=== PATIENT | female | born 1990 | race Caucasian/White ===

== ENCOUNTER 2017-12-03 11:42 | Outpatient (CLI) | payer BC, MEDICAID, SELFPAY ==
[2017-12-03 12:21] VITALS: BP 122/76; RESP 18; TEMP 37
== END 2017-12-03 13:15 | disposition home or self-care (01) ==
LOC: OBOUT 11:52 → OB 11:57
PROVIDERS: PCP Physician Assistant; Visit Provider Nurse Practitioner Obstetrics & Gynecology
DX: O26.93 Pregnancy related conditions, unspecified, third trimester (principal); Z3A.33 33 weeks gestation of pregnancy; Z36.9 Encounter for antenatal screening, unspecified
CPT/HCPCS: 59025

== ENCOUNTER → 2017-12-17 17:06 | Outpatient (CLI) | payer BC, MEDICAID, SELFPAY | PROVIDERS: PCP Nurse Practitioner Obstetrics & Gynecology; Visit Provider Nurse Practitioner Obstetrics & Gynecology | DX: Z34.90 Encounter for supervision of normal pregnancy, unspecified, unspecified trimester (principal) | CPT/HCPCS: 86403 ==

== ENCOUNTER 2018-01-13 10:51 | Inpatient (IN) | payer BC, MEDICAID, SELFPAY ==
[2018-01-13 10:36] VITALS: BMI 38.7
[2018-01-13 10:37] VITALS: BP 123/82; PULSE 118; RESP 20; TEMP 36.3; O2SAT 97; BMI 38.7
--- NOTE | 2018-01-13 11:19 | P.PCN_ITS ---
- Delivery Note Delivery Date:: 01/13/18 Delivery Time:: 11:00 Anesthesia Type: None Was labor medically induced?: No Induction method: none Gestational age (weeks): 39 delivered prior to 39 weeks?: No Justification for early elective delivery:: Active Labor Infant Gender: Female at 1 minute: 8 at 5 minutes: 9 Delivery Procedure:: She is a 27-year-old 3 para 2 who was 39 weeks gestational age. She arrived in active labor having regular contractions and was found to be 9 cm dilated. She had her membranes ruptured and with one long push she delivered a liveborn female child at 11:00 on the morning of January 13, 2018. The baby had Apgars of 8 at 1 minute and 9 at 5 minutes. On deliver the head the anterior shoulder rapidly delivered followed by the rest of the infant's body atraumatically. The oropharynx and nasopharynx were bulb suctioned. The baby cried spontaneously. Since the baby was vigorous we allowed the cord to continue to [place] approximately 1 minute. The cord was then doubly clamped and cut and the was handed off to nurses who assigned Apgars of 8 at 1 minute and 9 at 5 minutes. We then obtained cord blood as well as cord pH. The pH was 7.40. Using gentle traction on the cord and and countertraction on the fundus I was able to easily deliver the placenta intact. He had a normal three-vessel cord. There were any other vaginal lacerations. Estimated blood loss approximately 400 cc. She plans to bottle feed. Her principal java software engineer is Dr. Mcclure.
[2018-01-13 11:38] LABS: Basophils % 0.1 % (0.1-2.0); Eosinophils # 0.1 K/mm3 (0.0-0.4); Eosinophils % 0.7 % (0.1-12.0); Hematocrit 40.7 % (37.0-47.0); Hemoglobin 13.8 g/dL (12.2-16.2); Lymphocytes # 1.6 K/mm3 (0.7-4.5); Lymphocytes % 14.1 K/mm3 (10-50); Mean Corpuscular HGB Conc 33.8 g/dL (31.8-35.4); Mean Corpuscular Hemoglobin 30.6 pg (27.0-31.2); Mean Corpuscular Volume 90.4 fl (81-99); Mean Platelet Volume 9.2 fl (7.4-10.4); Monocytes # 0.5 K/mm3 (0.1-1.0); Monocytes % 4.1 % (1.7-9.3); Neutrophils # 8.9 K/mm3 (1.8-7.8); Platelet Count 220 K/mm3 (142-424); Red Blood Count 4.51 M/mm3 (4.20-5.40); Red Cell Distribution Width 12.9 % (11.5-17.5)
--- NOTE | 2018-01-13 13:59 | HMH.OBAPHP ---
OB - H&P: HPI Antepartum - History of Present Illness Chief complaint: Contractions - History of Present Criteria for establishing EDC:: LMP confirmed by 1st trimester US care: good care Ultrasounds: normal 1st trimester US, normal mid trimester US Obstetrical complications: none Medical complications: none Planning to breastfeed?: No [facility] History Medical History: Reports:: Kidney Stones Other Medical History: Reports: Arthritis, Glaucoma Other Surgeries: Yes: Other Amputation: No Fractures: No - *Social History Smoking Status: Former smoker Alcohol Intake: never Substance Use Type: denies use Occupational Status: employed Household Members: spouse, children *Family Hx:: Diabetes, Asthma, Hyperlipidemia, Hypertension, Thyroid Disorder, Heart Attack [employer]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 History, Abnormal Uterine Bleeding, Endometriosis Para: 2 Meds Home Medications Medication Instructions Recorded Confirmed Type azelaic acid 15 % topical foam % TOPICAL 11/29/17 History benzoyl peroxide 10 % lotion 1 applic TOPICAL QDAY 11/29/17 History ferrous sulfate 325 mg (65 mg 325 mg PO QDAY tab 11/29/17 History iron) tablet,delayed release latanoprost 0.005 % eye drops 1 drp OPHTHALMIC QDAY 11/29/17 History 1 tab PO QDAY 11/29/17 History vitamin,calcium,xwptknht-quzp-iheda acid tablet Allergies Allergy/AdvReac Type Severity Reaction Status Date / Time No Known Allergies Allergy Verified 11/29/17 10:25 OB - H&P: Exam - Physical Exam Vital signs: Temp Pulse Resp BP Pulse Ox 97.4 F L 118 H 20 123/82 97 01/13/18 10:37 01/13/18 10:37 01/13/18 10:37 01/13/18 10:37 01/13/18 10:37 - Constitutional mild distress (She is in active labor) OB - Results - Labs Labs: Short CBC 01/13/18 Range/Units 11:31 WBC 11.0 H (4.8-10.8) K/mm3 Hgb 13.8 (12.2-16.2) g/dL Hct 40.7 (37.0-47.0) % Plt Count 220 (142-424) K/mm3 OB - A/P Antepartum (1) Normal delivery Current visit: Yes Status: Acute - Additional Plan Plan: expectant management (She was 9 centimeters dilated on arrival.) Planning to breastfeed?: No
--- NOTE | 2018-01-13 19:10 | PC.NURSE ---
HANDOFF REPORT GIVEN TO Hiren SOARES RN
[2018-01-14 07:16] LABS: Hematocrit 35.6 % (37.0-47.0)
--- NOTE | 2018-01-14 08:25 | US_ITS ---
US pelvis (no fetus) HISTORY: Evaluate for retained products of conception, ITS.REASON: MD WANTS PT CHECKED FOR RETAINED PLACENTA ORDERING PHYSICIAN: Terence Cota MD PATIENT AGE: 27 years COMPARISON: None FINDINGS: The uterus is enlarged at 22 x 10 x 14 cm consistent with recent state. There is some areas of increased echogenicity within the endometrium and may be related to residual blood clot as opposed to retained products of conception. No significant fluid is evident within the endometrium. Recommend follow-up if symptoms persist. multiple small follicles are present in the right ovary. Left ovary is not identified. IMPRESSION: Enlarged uterus with suspected blood within the endometrial cavity. No definite retained products of conception.
--- NOTE | 2018-01-14 08:31 | HMH.ACPN2 ---
Internal Medicine - PN: Subj *Date: 01/14/18 *Time: 08:31 Interval history: She is doing well this morning although she continues to have some accessing. I concerned that she may have a small piece of placenta retained. Exam Vital signs and Labs for Last 24 Hours: Temp Pulse Resp BP Pulse Ox 97.4 F L 118 H 20 123/82 97 01/13/18 10:37 01/13/18 10:37 01/13/18 10:37 01/13/18 10:37 01/13/18 10:37 Laboratory Results - last 24 hr 01/13/18 11:10: Cord ABG pH 7.40 01/13/18 11:31: WBC 11.0 H, RBC 4.51, Hgb 13.8, Hct 40.7, MCV 90.4, MCH 30.6, MCHC 33.8, RDW 12.9, Plt Count 220, MPV 9.2, Neut % (Auto) 81.0 H, Lymph % (Auto) 14.1, [place]osh % (Auto) 4.1, Eos % (Auto) 0.7, Baso % (Auto) 0.1, Neut # (Auto) 8.9 H, Lymph # (Auto) 1.6, [place] # (Auto) 0.5, Eos # (Auto) 0.1, Baso # (Auto) 0.0 01/14/18 06:30: Hct 35.6 L I & O for Last 24 hours: Intake & Output 01/11/18 01/12/18 01/13/18 01/14/18 11:59 11:59 11:59 11:59 Weight 205 lb 2 oz - Constitutional no acute distress Assessment and Plan (1) Normal delivery Current visit: Yes Status: Acute Category: Medical Code(s): O80 - Encounter for full-term uncomplicated delivery; Z37.9 - Outcome of delivery, unspecified - Assessment and plan all Dx Assessment and Plan for all problems:: I suspect she may have a small piece of placenta and we will get an ultrasound this morning. If that is the case we will take her to the operating room for D&C.
[2018-01-14 09:07] LABS: Hemoglobin 12.3 g/dL (12.2-16.2)
--- NOTE | 2018-01-15 10:28 | HMH.DCSUM ---
General - General Admission date: 01/13/18 Discharge date: 01/15/18 HPI HPI: She is a 27-year-old 3 now para 3 who was 39 weeks gestational age. She arrived in active labor and was found to be 9 cm dilated. Objective Vital signs: Temp Pulse Resp BP Pulse Ox 97.4 F L 118 H 20 123/82 97 01/13/18 10:37 01/13/18 10:37 01/13/18 10:37 01/13/18 10:37 01/13/18 10:37 no acute distress Hospital Course Hospital Course: She was found to be 9 cm dilated and had her membranes ruptured. She rapidly progressed to full dilation and delivered spontaneous I born female child at 11 AM on the morning of January 13, 2018. The baby weighed 6 lbs. 10 oz. was 19-1/2 inches long. She had Apgars of 8 at 1 minute and 9 at 5 minutes. Sarai has done well and has remained afebrile throughout her hospitalization. She did have some excess bleeding post but an ultrasound showed that she had no retained center. Her hemoglobin is stable. She has a positive blood, she is rubella immune and was group B streptococcus negative. She is bottlefeeding. Her boring mill set up operator is Dr. Lake. DS: Diagnosis - Discharge Diagnosis (1) Normal delivery Status: Acute Discharge Plan - Patient Discharge Instructions ACTIVITY: No heavy lifting DIET: continue same diet - Follow up Plan Disposition: Home, Self-Shelter Medications: Home Medications Medication Instructions Recorded Confirmed Type azelaic acid 15 % topical foam 1 % TOPICAL BID 11/29/17 01/14/18 History benzoyl peroxide 10 % lotion 1 applic TOPICAL QDAY 11/29/17 01/14/18 History ferrous sulfate 325 mg (65 mg 325 mg PO DAILY tab 11/29/17 01/14/18 History iron) tablet,delayed release latanoprost 0.005 % eye drops 1 drp OPHTHALMIC QDAY 11/29/17 01/14/18 History 1 tab PO QDAY 11/29/17 01/14/18 History vitamin,calcium,qxbojact-ygok-pnlrf acid tablet Prescriptions/Medication Reconciliation: Continue vitamin,calcium,tmcqmdux-fiaa-bhllh acid tablet 1 tab PO QDAY azelaic acid 15 % topical foam 1 % TOPICAL BID latanoprost 0.005 % eye drops 1 drp OPHTHALMIC QDAY benzoyl peroxide 10 % lotion 1 applic TOPICAL QDAY No Action ferrous sulfate 325 mg (65 mg iron) tablet,delayed release 325 mg PO DAILY tab
--- NOTE | 2018-01-15 10:32 | P.DS_ITS ---
General - General Admission date: 01/13/18 Discharge date: 01/15/18 HPI HPI: She is a 27-year-old 3 now para 3 who was 39 weeks gestational age. She arrived in active labor and was found to be 9 cm dilated. Objective Vital signs: Temp Pulse Resp BP Pulse Ox 97.4 F L 118 H 20 123/82 97 01/13/18 10:37 01/13/18 10:37 01/13/18 10:37 01/13/18 10:37 01/13/18 10:37 no acute distress Hospital Course Hospital Course: She was found to be 9 cm dilated and had her membranes ruptured. She rapidly progressed to full dilation and delivered spontaneous I born female child at 11 AM on the morning of January 13, 2018. The baby weighed 6 lbs. 10 oz. was 19-1 /2 inches long. She had Apgars of 8 at 1 minute and 9 at 5 minutes. Sarai has done well and has remained afebrile throughout her hospitalization. She did have some excess bleeding post but an ultrasound showed that she had no retained center. Her hemoglobin is stable. She has a positive blood, she is rubella immune and was group B streptococcus negative. She is bottlefeeding. Her electronic organ mechanic is Dr. Lake. DS: Diagnosis - Discharge Diagnosis (1) Normal delivery Status: Acute Discharge Plan - Patient Discharge Instructions ACTIVITY: No heavy lifting DIET: continue same diet - Follow up Plan Disposition: Home, Self-Usp Medications: Home Medications Medication Instructions Recorded Confirmed Type azelaic acid 15 % topical foam 1 % TOPICAL BID 11/29/17 01/14/18 History benzoyl peroxide 10 % lotion 1 applic TOPICAL QDAY 11/29/17 01/14/18 History ferrous sulfate 325 mg (65 mg 325 mg PO DAILY tab 11/29/17 01/14/18 History iron) tablet,delayed release latanoprost 0.005 % eye drops 1 drp OPHTHALMIC QDAY 11/29/17 01/14/18 History 1 tab PO QDAY 11/29/17 01/14/18 History vitamin,calcium,qxjhiush-snfk-rindl acid tablet Prescriptions/Medication Reconciliation: Continue vitamin,calcium,wubefjmp-fcno-unapt acid tablet 1 tab PO QDAY azelaic acid 15 % topical foam 1 % TOPICAL BID latanoprost 0.005 % eye drops 1 drp OPHTHALMIC QDAY benzoyl peroxide 10 % lotion 1 applic TOPICAL QDAY No Action ferrous sulfate 325 mg (65 mg iron) tablet,delayed release 325 mg PO DAILY tab
== END 2018-01-15 11:45 | disposition home or self-care (01) | DRG 775 ==
LOC: OBOUT 10:53
PROVIDERS: Admitting Provider Nurse Practitioner Obstetrics & Gynecology; PCP Physician Assistant; Visit Provider Nurse Practitioner Obstetrics & Gynecology
DX: O80 Encounter for full-term uncomplicated delivery (principal); Z37.0 Single live birth; Z3A.39 39 weeks gestation of pregnancy
CPT/HCPCS: 59409; 36415; 59025; 76856; 82800; 85014; 85018; 85025

== ENCOUNTER → 2019-01-28 09:35 | Outpatient (CLI) | payer OTHER, MEDICAID, SELFPAY ==
--- NOTE | 2019-01-28 09:38 | US_ITS ---
US transvaginal HISTORY: ITS.REASON: US T/V-R/O Cysts Endometriosis, pelvic pain ORDERING PHYSICIAN: Terence Cota MD PATIENT AGE: 28 years Comparison: None FINDINGS: The uterus is 11 x 6 x 8 cm with a combined endometrial thickness of 9 mm. No uterine mass evident.. There is a small nabothian cyst noted at 6 mm. The left ovary is 3 x 1.8 cm. The right ovary is 3 x 1.8 cm. No adnexal mass or cul-de-sac fluid evident. IMPRESSION: Bulky uterus. No obvious uterine mass or endometrial thickening or other significant anomalies
== END ==
PROVIDERS: PCP Nurse Practitioner Obstetrics & Gynecology; Visit Provider Nurse Practitioner Obstetrics & Gynecology
DX: N80.9 Endometriosis, unspecified (principal); N83.209 Unspecified ovarian cyst, unspecified side; N94.10 Unspecified dyspareunia; R10.2 Pelvic and perineal pain
CPT/HCPCS: 76830

== ENCOUNTER → 2019-05-28 10:57 | Outpatient (CLI) | payer BC, MEDICAID, SELFPAY ==
[2019-05-28 11:58] LABS: Basophils % 0.4 % (0.1-2.0); Eosinophils # 0.1 K/mm3 (0.0-0.4); Eosinophils % 1.8 % (0.1-12.0); Hematocrit 42.1 % (37.0-47.0); Hemoglobin 13.8 g/dL (12.2-16.2); Lymphocytes # 1.7 K/mm3 (0.7-4.5); Lymphocytes % 24.5 % (10-50); Mean Corpuscular HGB Conc 32.7 g/dL (31.8-35.4); Mean Corpuscular Volume 94.8 fl (81-99); Mean Platelet Volume 8.2 fl (7.4-10.4); Monocytes # 0.3 K/mm3 (0.1-1.0); Monocytes % 4.3 % (1.7-9.3); Neutrophils # 4.8 K/mm3 (1.8-7.8); Neutrophils % 69.1 % (37.0-80.0); Platelet Count 249 K/mm3 (142-424); Red Blood Count 4.45 M/mm3 (4.20-5.40); Red Cell Distribution Width 12.8 % (11.5-17.5); White Blood Count 6.9 K/mm3 (4.8-10.8)
[2019-05-29 07:13] LABS: HIV Screen 4th Generation wRfx Non Reactive (Non Reactive)
[2019-05-29 11:36] LABS: Hepatitis B Surface Antigen Negative (Negative); Hepatitis C Antibody <0.1 s/co ratio (0.0-0.9); Rapid Plasma Reagin Ab Titer Non Reactive (NonRea<1:1); Rubella Antibodies, IgG 1.93 index (Immune >0.99)
== END ==
PROVIDERS: Visit Provider Nurse Practitioner Obstetrics & Gynecology
DX: Z34.90 Encounter for supervision of normal pregnancy, unspecified, unspecified trimester (principal); Z3A.08 8 weeks gestation of pregnancy
CPT/HCPCS: 36415; 85025; 86592; 86703; 86762; 86850; 87340; 87380; G0432

== ENCOUNTER → 2019-06-01 12:37 | Outpatient (CLI) | payer BC, MEDICAID, SELFPAY ==
--- NOTE | 2019-06-01 12:38 | US_ITS ---
US OB transvaginal HISTORY: ITS.REASON: US OB Dates ORDERING PHYSICIAN: Terence Cota MD PATIENT AGE: 28 years COMPARISON: None FINDINGS: An intrauterine gestational sac is present with a pole with a crown-rump length of 1.85cm correlating to gestational age of 8w3d. heart tones are present with an FHR of 178 bpm's. Yolk sac is noted. Adnexa: 1.5 cm right corpus luteum cyst. IMPRESSION: Live intrauterine gestation at 8 weeks 3 days as described above. Estimated due date by Ultrasound is 01/08/2020
== END ==
PROVIDERS: Visit Provider Nurse Practitioner Obstetrics & Gynecology
DX: O26.841 Uterine size-date discrepancy, first trimester (principal)
CPT/HCPCS: 76817

== ENCOUNTER → 2019-08-21 13:03 | Outpatient (CLI) | payer BC, MEDICAID, SELFPAY ==
--- NOTE | 2019-08-21 13:04 | US_ITS ---
PROCEDURE: US OB /MATERNAL DETAIL CLINICAL INDICATION: us ob complete COMPARISON: [facility] US OB transvaginal from 06/01/2019 FINDINGS: Single viable intrauterine gestation. Breech position. Placenta: Fundalplacenta grade 1. There is average amount fluid. The cervix appears satisfactory. Closed and measuring 5 cm in length. Complete survey performed and was unremarkable on the submitted images as in PACS. No discrete anomalies identified on survey imaging by technologist. Active fetus. Three-vessel cord with satisfactory umbilical cord insertion. 4- chamber heart noted. Survey of brain & ventricles Unremarkable. Face and neck survey unremarkable. Diaphragm and chest views unremarkable. Abdomen: Both kidneys noted and unremarkable. Stomach noted and satisfactory. Spine: Survey of the spine satisfactory with no anomalies identified nor imaged. Both arms and legs noted. Amniotic Fluid: Adequate. Maternal adnexa: No significant findings. Measurements: Average ultrasound age 20 week. Gestational Age 20 week Estimated due date by ultrasound age 0201/08/2020. Estimated weight 326.8 ggrams. BPD = 20 weeks OFD = 20 weeks HC = 19 weeks 2 days AC = 20 weeks FL = 20 weeks 3 days Growth Percentile= 46 percent% Heart Rate = 149 bpm Cerebellum = 20 weeks 2 days Humerus = 20 weeks 3 days HC/AC is 1.12 CI is 0.8 FL/BPD is 0.72 FL/AC is 0.23 IMPRESSION: There is a single live fetus which is in breech presentation with an average ultrasound age of 20 weeks and 0 days. All parameters correlate with no obvious anomalies. Please see above for detail Dictated by: Gregory Jaocb MD 08/22/2019 10:09 Electronically signed by Gregory Jacob MD in [place] 08/22/2019 10:09
== END ==
PROVIDERS: PCP Physician Assistant; Visit Provider Nurse Practitioner Obstetrics & Gynecology
DX: Z36.0 Encounter for antenatal screening for chromosomal anomalies (principal)
CPT/HCPCS: 76811

== ENCOUNTER → 2019-10-16 09:55 | Outpatient (CLI) | payer BC, MEDICAID, SELFPAY ==
[2019-10-16 10:24] LABS: Glucose,Fasting 112 mg/dL (60-105)
[2019-10-16 11:41] LABS: Glucose 1 Hour 225 mg/dL (74-106)
== END ==
PROVIDERS: Visit Provider Nurse Practitioner Obstetrics & Gynecology
DX: O99.810 Abnormal glucose complicating pregnancy (principal)
CPT/HCPCS: 36415; 82951

== ENCOUNTER → 2019-10-21 12:57 | Outpatient (CLI) | payer BC, MEDICAID, SELFPAY ==
[2019-10-21 13:30] LABS: Glucose,Fasting 109 mg/dL (60-105)
[2019-10-21 15:03] LABS: Glucose 1 Hour 181 mg/dL (74-106)
[2019-10-21 15:41] LABS: Glucose 2 Hour 190 mg/dL (74-106)
[2019-10-21 16:39] LABS: Glucose 3 Hour 176 mg/dL (74-106)
== END ==
PROVIDERS: Visit Provider Nurse Practitioner Obstetrics & Gynecology
DX: O99.810 Abnormal glucose complicating pregnancy (principal); N39.0 Urinary tract infection, site not specified
CPT/HCPCS: 36415; 82951; 87086

== ENCOUNTER 2019-11-26 03:25 | Inpatient (IN) ==
[2019-11-26 04:20] LABS: Microscopic, Urine URINE MICROSCOPIC (MICROSCOPIC)
[2019-11-26 04:26] LABS: Appearance,Urine CLEAR (Clear); Bilirubin,Urine Negative (Negative); Blood, Urine Negative (Negative); Color,Urine YELLOW (Yellow); Glucose,Urine (UA) Negative (Negative); Ketones,Urine 1+ (Negative); Leukocyte Esterase,Urine TRACE (Negative); Protein,Urine Negative (Negative); Urobilinogen,Urine 0.2 EU/dl (0.2)
[2019-11-26 04:30] LABS: Amphetamine/Metha Screen,Urine Negative ng/mL (<1000); Barbiturates Screen,Urine Negative ng/mL (<200); Benzodiazepines Screen,Urine Negative ng/mL (<200); Cannabinoid Screen,Urine Negative ng/mL (<50); Cocaine Screen,Urine Negative ng/mL (<300); Methadone Screen,Urine Negative ng/mL (<300); Opiate Screen,Urine Negative ng/mL (<300); Phencyclidine Screen,Urine Negative ng/mL (<25)
[2019-11-26 07:00] LABS: Basophils % 0.1 % (0.1-2.0); Eosinophils # 0.1 K/mm3 (0.0-0.4); Eosinophils % 0.9 % (0.1-12.0); Hematocrit 38.4 % (37.0-47.0); Hemoglobin 13.2 g/dL (12.2-16.2); Lymphocytes # 1.9 K/mm3 (0.7-4.5); Lymphocytes % 19.8 % (10-50); Mean Corpuscular HGB Conc 34.4 g/dL (31.8-35.4); Mean Corpuscular Volume 89.7 fl (81-99); Mean Platelet Volume 8.3 fl (7.4-10.4); Monocytes # 0.3 K/mm3 (0.1-1.0); Monocytes % 3.5 % (1.7-9.3); Neutrophils # 7.3 K/mm3 (1.8-7.8); Neutrophils % 75.7 % (37.0-80.0); Platelet Count 227 K/mm3 (142-424); Red Blood Count 4.28 M/mm3 (4.20-5.40); Red Cell Distribution Width 13.5 % (11.5-17.5); White Blood Count 9.7 K/mm3 (4.8-10.8)
--- NOTE | 2019-11-26 07:30 | Progress Note ---
Internal Medicine - PN: Subj *Date: 11/26/19 *Time: 07:25 (This 29-year-old 4, para 3, Ab0 white female was admitted at over 0330 this morning with regular contractions at 33-6/7 weeks. He has a history of labor with previous pregnancies. She has also been diagnosed with gestational diabetes and is being seen by Dr. Unger at [facility]; she is on insulin (p.m.) and metformin (a.m.). On admission, AmniSure was negative, but fibronectin was positive. She was having regular contr actions and was initially treated with IV fluids and subcu Brethine, but her contractions continued. Her initial exam was 1 cm dilatation. She has progressed to 1.5 cm with a posterior cervix, intact bag of water, 50% effacement. The plan is to initiate prophylactic steroids and start intravenous magnesium sulfate. Appropriate labs, including glucose, have been ordered. She will undergo biophysical profile this morning. I discussed with her the possible need for transfer if tocolyse here fails. The rest of her history and physical are on her chart. It should be noted that her history there states that she has a "internal pacemaker," but this is in error.) Exam Vital signs and Labs for Last 24 Hours: Temp Pulse Resp BP 98.3 F 119 H 20 144/78 H 11/26/19 03:51 11/26/19 03:51 11/26/19 03:51 11/26/19 03:51 Laboratory Results - last 24 hr 11/26/19 03:52: Urine Color Yellow, Urine Appearance Clear, Urine pH 7.0, Ur Specific [place] 1.010, Urine Protein Negative, Urine Glucose (UA) Negative, Urine Ketones 1+, Urine Blood Negative, Urine Nitrate Negative, Urine Bilirubin Negative, Urine Urobilinogen 0.2, Ur Leukocyte Esterase Trace, Urine WBC 3-5, Ur Squamous Epith Cells 10-20 11/26/19 03:52: Urine Opiates Screen Negative, Urine Methadone Screen Negative, Ur Barbituates Screen Negative, Ur Phencyclidine Scrn Negative, Ur Amphetamines Screen Negative, U Benzodiazepines Scrn Negative, Urine Cocaine Screen Negative, U Marijuana (THC) Screen Negative 11/26/19 03:52: Fibronectin Positive A 11/26/19 06:38: WBC 9.7, RBC 4.28, Hgb 13.2, Hct 38.4, MCV 89.7, MCH 30.9, MCHC 34.4, RDW 13.5, Plt Count 227, MPV 8.3, Neut % (Auto) 75.7, Lymph % (Auto) 19.8, [place] % (Auto) 3.5, Eos % (Auto) 0.9, Baso % (Auto) 0.1, Neut # (Auto) 7.3, Lymph # (Auto) 1.9, [place] # (Auto) 0.3, Eos # (Auto) 0.1, Baso # (Auto) 0.0 11/26/19 06:38: Magnesium 1.2 L I & O for Last 24 hours: Intake & Output 11/23/19 11/24/19 11/25/19 11/26/19 11:59 11:59 11:59 11:59 Weight 210 lb
[2019-11-26 08:03] VITALS: BP 119/60
--- NOTE | 2019-11-26 09:04 | Progress Note ---
Internal Medicine - PN: Subj *Date: 11/26/19 *Time: 09:03 (Contractions have now ceased on magnesium sulfate. Baby looks good on the monitor. Blood sugars in the 120s. Plan is to continue to observe on magnesium sulfate and obtain a biophysical profile today. Second dose of steroids tomorrow morning.) Exam Vital signs and Labs for Last 24 Hours: Temp Pulse Resp BP 98.3 F 102 H 20 119/60 11/26/19 03:51 11/26/19 03:51 11/26/19 03:51 11/26/19 03:51 Laboratory Results - last 24 hr 11/26/19 03:52: Urine Color Yellow, Urine Appearance Clear, Urine pH 7.0, Ur Specific [place] 1.010, Urine Protein Negative, Urine Glucose (UA) Negative, Urine Ketones 1+, Urine Blood Negative, Urine Nitrate Negative, Urine Bilirubin Negative, Urine Urobilinogen 0.2, Ur Leukocyte Esterase Trace, Urine WBC 3-5, Ur Squamous Epith Cells 10-20 11/26/19 03:52: Urine Opiates Screen Negative, Urine Methadone Screen Negative, Ur Barbituates Screen Negative, Ur Phencyclidine Scrn Negative, Ur Amphetamines Screen Negative, U Benzodiazepines Scrn Negative, Urine Cocaine Screen Negative, U Marijuana (THC) Screen Negative 11/26/19 03:52: Fibronectin Positive A 11/26/19 06:38: WBC 9.7, RBC 4.28, Hgb 13.2, Hct 38.4, MCV 89.7, MCH 30.9, MCHC 34.4, RDW 13.5, Plt Count 227, MPV 8.3, Neut % (Auto) 75.7, Lymph % (Auto) 19.8, [place] % (Auto) 3.5, Eos % (Auto) 0.9, Baso % (Auto) 0.1, Neut # (Auto) 7.3, Lymph # (Auto) 1.9, Evang[place] # (Auto) 0.3, Eos # (Auto) 0.1, Baso # (Auto) 0.0 11/26/19 06:38: Magnesium 1.2 L 11/26/19 06:38: Random Glucose 125 H I & O for Last 24 hours: Intake & Output 11/23/19 11/24/19 11/25/19 11/26/19 11:59 11:59 11:59 11:59 Weight 210 lb
--- NOTE | 2019-11-27 08:55 | Progress Note ---
Internal Medicine - PN: Subj *Date: 11/27/19 *Time: 08:54 (This is hospital day #2. The patient has now received her second dose of steroids. She remains on magnesium sulfate and her mag level is 4.5. No contractions. Cervix unchanged. Biophysical profile was normal. The plan is to pleat her 48-hour course of magnesium sulfate and then reevaluate. Patient's blood sugar is normal on her usual regimen.) Exam Vital signs and Labs for Last 24 Hours: Temp Pulse Resp BP 98.3 F 102 H 20 119/60 11/26/19 03:51 11/26/19 03:51 11/26/19 03:51 11/26/19 03:51 Laboratory Results - last 24 hr 11/26/19 21:20: Magnesium 4.7 H D 11/27/19 06:08: Magnesium 4.3 H I & O for Last 24 hours: Intake & Output 11/24/19 11/25/19 11/26/19 11/27/19 11:59 11:59 11:59 11:59 Intake Total 1437 / 1437 Output Total 2600 / 2600 Balance -1163 / -1163 Weight 210 lb
--- NOTE | 2019-11-28 10:20 | Discharge Summary ---
General - General Admission date:: 11/26/19 Discharge date: 11/28/19 HPI HPI: She is a 29-year-old 4 para 3 at 34 weeks gestational age. She came in with labor and was started on IV magnesium sulfate. She is also known to have gestational diabetes. Hospital Course Hospital Course: She received IV magnesium sulfate and steroids. She has now stopped abelardo. On examination her cervix is 2 cm 10% effaced and station -3. Nonstress test is reactive. She is discharged home to follow-up with me in approximately 48 hours time. She was given a prescription for nifedipine to take 10 mg every 6 hours as needed for contractions. Her cervix has not changed. She will continue on bedrest. Objective Vital signs: Temp Pulse Resp BP 98.3 F 102 H 20 119/60 11/26/19 03:51 11/26/19 03:51 11/26/19 03:51 11/26/19 03:51 no acute distress Results Labs on day of discharge: Labs from last 24 hours 11/28/19 11/27/19 05:15 20:04 Magnesium 4.4 H 4.2 H DS: Diagnosis - Discharge Diagnosis (1) labor in third trimester Status: Acute (2) Gestational diabetes mellitus (GDM) affecting Status: Chronic Discharge Plan - Patient Discharge Instructions ACTIVITY: Limited activity, No heavy lifting DIET: continue same diet - Follow up Plan Disposition: Home, Self-Residential Medications: Home Medications Medication Instructions Recorded Confirmed Type prenat.vits,vipul,jgn-yzja-awtdi 1 tab PO DAILY 05/28/19 11/26/19 History metformin 500 mg tablet 500 mg PO BID #60 tab 11/18/19 11/26/19 History Insulin Glargine,Hum.rec.anlog 8 unit SQ HS 11/26/19 11/26/19 History [Chanelaglrashel Fonseca U-100] RX: Ondansetron [Zofran 4mg 4 mg PO Q6H 11/26/19 11/26/19 History ODT] NIFEdipine [NIFEdipine 10mg 0 mg PO Q6HP PRN #60 cap 11/28/19 Rx Capsule] Prescriptions/Medication Reconciliation: New NIFEdipine [NIFEdipine 10mg Capsule] 0 mg PO Q6HP PRN #60 cap PRN Reason: Cramping Continued prenat.vits,vipul,eic-sygr-eftnt 1 tab PO DAILY metformin 500 mg tablet 500 mg PO BID #60 tab Insulin Glargine,Hum.rec.anlog [Yuriy Fonseca U-100] 8 unit SQ HS RX: Ondansetron [Zofran 4mg ODT] 4 mg PO Q6H - Problem Reconciliation Problems Reviewed?: Yes
== END 2019-11-28 10:40 | disposition home or self-care (01) | DRG 833 ==
LOC: OBOUT 03:25 → OB 03:31
PROVIDERS: ADMIT Obstetrics & Gynecology; ATTEND Obstetrics & Gynecology

== ENCOUNTER → 2019-12-03 09:15 | Outpatient (CLI) | payer BC, MEDICAID, SELFPAY ==
--- NOTE | 2019-12-03 09:15 | US_ITS ---
PROCEDURE: US OB BPP W/FET-MAT S/D CLINICAL INDICATION: US OB BPP Growth-Gestational Diabetes COMPARISON: No exams were available for comparison FINDINGS: There is a single live fetus which is in cephalic presentation. heart body and practice breathing motion noted. FHR is 140 beats per minute. Average ultrasound age is 34 weeks 2 days. Estimated weight 2347 g. This is 25th percentile. All parameters correlate. The placenta is fundal and grade 2. No previa or abruption. Amniotic fluid index is normal at 14 cm. Cervix is closed and measures is 5.7 cm transabdominal. Doppler evaluation of the umbilical artery demonstrates a resistive index of 0.5 and an SD ratio of 2.0 which is less than 95th percentile. Biophysical profile is 8 of 8. HC/AC is 1.03 CI is 0.78 FL/BPD is 0.81 FL/AC is 0.23 IMPRESSION: There is a single live fetus which is in cephalic presentation. heart body and practice breathing motion noted. FHR is 140 beats per minute. Average ultrasound age is 34 weeks 2 days. Estimated weight 2347 g. This is 25th percentile. All parameters correlate. The placenta is fundal and grade 2. No previa or abruption. Amniotic fluid index is normal at 14 cm. Cervix is closed and measures is 5.7 cm transabdominal. Doppler evaluation of the umbilical artery demonstrates a resistive index of 0.5 and an SD ratio of 2.0 which is less than 95th percentile. Biophysical profile is 8 of 8. Dictated by: Gregory Jacob MD 12/03/2019 15:15 Electronically signed by Gregory Jacob MD in [place] 12/03/2019 15:15
== END ==
PROVIDERS: PCP Nurse Practitioner Obstetrics & Gynecology; Visit Provider Nurse Practitioner Obstetrics & Gynecology
DX: O24.419 Gestational diabetes mellitus in pregnancy, unspecified control (principal)
CPT/HCPCS: 76811; 76819; 76820

== ENCOUNTER → 2019-12-07 17:45 | Outpatient (CLI) | payer BC, MEDICAID, SELFPAY | PROVIDERS: Visit Provider Nurse Practitioner Obstetrics & Gynecology | DX: Z34.90 Encounter for supervision of normal pregnancy, unspecified, unspecified trimester (principal) | CPT/HCPCS: 86403 ==

== ENCOUNTER 2019-12-08 19:51 | Inpatient (IN) ==
[2019-12-08 20:39] LABS: Microscopic, Urine URINE MICROSCOPIC (MICROSCOPIC)
[2019-12-08 20:42] LABS: Appearance,Urine CLEAR (Clear); Bilirubin,Urine Negative (Negative); Blood, Urine TRACE-I (Negative); Color,Urine YELLOW (Yellow); Glucose,Urine (UA) Negative (Negative); Ketones,Urine 1+ (Negative); Leukocyte Esterase,Urine Negative (Negative); Protein,Urine Negative (Negative); Specific Gravity, Urine 1.025 (1.005-1.030); Urobilinogen,Urine 0.2 EU/dl (0.2)
[2019-12-08 20:50] LABS: Amphetamine/Metha Screen,Urine Negative ng/mL (<1000); Barbiturates Screen,Urine Negative ng/mL (<200); Benzodiazepines Screen,Urine Negative ng/mL (<200); Cannabinoid Screen,Urine Negative ng/mL (<50); Cocaine Screen,Urine Negative ng/mL (<300); Methadone Screen,Urine Negative ng/mL (<300); Opiate Screen,Urine Negative ng/mL (<300); Phencyclidine Screen,Urine Negative ng/mL (<25)
[2019-12-08 21:05] LABS: Bacteria,Urine Trace /lpf
[2019-12-08 21:28] LABS: Basophils % 0.1 % (0.1-2.0); Eosinophils # 0.1 K/mm3 (0.0-0.4); Eosinophils % 0.8 % (0.1-12.0); Hematocrit 40.9 % (37.0-47.0); Hemoglobin 14.3 g/dL (12.2-16.2); Lymphocytes # 1.9 K/mm3 (0.7-4.5); Lymphocytes % 17.8 % (10-50); Mean Corpuscular HGB Conc 34.9 g/dL (31.8-35.4); Mean Corpuscular Volume 89.8 fl (81-99); Mean Platelet Volume 9.8 fl (7.4-10.4); Monocytes # 0.5 K/mm3 (0.1-1.0); Monocytes % 4.7 % (1.7-9.3); Neutrophils # 8.3 K/mm3 (1.8-7.8); Neutrophils % 76.6 % (37.0-80.0); Platelet Count 287 K/mm3 (142-424); Red Blood Count 4.55 M/mm3 (4.20-5.40); Red Cell Distribution Width 13.3 % (11.5-17.5); White Blood Count 10.8 K/mm3 (4.8-10.8)
--- NOTE | 2019-12-08 22:04 | Progress Note ---
[facility] Anesthesia Checklist - Patient Identification Patient Identification: Arm Band - Structural Data Admitted From: Inpatient Planned Operative Procedure/s: labor epidural Consent for Planned Operative Procedure(s) Verified: Yes Verified Documents: Surgical Consent, History and Physical - Additional verifications Anesthesia Reactions: No Hx Blood Transfusions: No Blood Transfusion Reaction: No - Airway Assessment C-Spine Mobility Assessed: Yes (mp2) TMJ Mobility Assessed: Yes Dentition: Good Dentition - Neurological Assessment Level of Consciousness: Awake, Alert - Anesthesia Plan Anesthesia Risk discussed: Yes Anesthesia Plan: Verified ASA Class: II Anesthesia Type: Epidural [facility] History I have reviewed the patient's past medical history: Yes Medical History: Reports:: Kidney Stones Denies:: Cancer, Diabetes Mellitus Type 1, Diabetes Mellitus Type 2, MRSA, Seizures *Have you ever received a pneumonia vaccine?: No *Have you received a flu vaccine this season?: Yes Other Medical History: Reports: Arthritis, Other. Denies: Blood Transfusion Reaction Anesthesia experience/problems:: nac Other Surgeries: Yes: Other. No: Amputation: No Fractures: No - *Social History Smoking Status: Never smoker Alcohol Intake: never Substance Use Type: denies use *Occupational Status:: employed Housing: house Household Members: spouse, children *Travel in the last 8 weeks: None Family Hx:: Diabetes, Asthma, Hyperlipidemia, Hypertension, Thyroid Disorder, Heart Attack SPECIALTY COOK history: Additional SPECIALTY COOK History, Abnormal Uterine Bleeding, Endometriosis Para: 3
--- NOTE | 2019-12-08 22:32 | Progress Note ---
Internal Medicine - PN: Subj *Date: 12/08/19 *Time: 22:29 (This 29-year-old 4, para 3, Ab0 white female is admitted at 35-4/7 weeks in active labor at 4-5 cm of dilatation. She has a history of early deliveries with her other pregnancies. She had received Brethine 2 weeks ago. She is a known gestational diabetic, but her blood sugar is 139. She took her metformin this morning. Her GBS status is unknown. Her hemoglobin is 14.3 g. At this time she refused tocolysis and now has an epidural in situ and wor [place] well. Labor started approximately 1800 hrs. and she arrived here at approximately 2000 hrs. her blood type is A+. Her rubella titer is immune. Her cervix is now completely effaced, 8 cm, with the presenting vertex at -1 station and a bulging bag of water. An amniotomy reveals clear fluid, and an internal monitor has been placed. Vaginal delivery is anticipated.) Exam Vital signs and Labs for Last 24 Hours: Pulse Resp BP Pulse Ox 125 H 22 131/109 H 98 12/08/19 20:22 12/08/19 20:22 12/08/19 20:22 12/08/19 20:22 Laboratory Results - last 24 hr 12/08/19 20:07: Urine Color Yellow, Urine Appearance Clear, Urine pH 6.0, Ur Specific [place] 1.025, Urine Protein Negative, Urine Glucose (UA) Negative, Urine Ketones 1+, Urine Blood Trace-i, Urine Nitrate Negative, Urine Bilirubin Negative, Urine Urobilinogen 0.2, Ur Leukocyte Esterase Negative, Urine WBC 3-5, Ur Squamous Epith Cells 5-10, Urine Bacteria Trace 12/08/19 20:07: Urine Opiates Screen Negative, Urine Methadone Screen Negative, Ur Barbituates Screen Negative, Ur Phencyclidine Scrn Negative, Ur Amphetamines Screen Negative, U Benzodiazepines Scrn Negative, Urine Cocaine Screen Negative, U Marijuana (THC) Screen Negative 12/08/19 20:10: Magnesium 1.4 12/08/19 20:10: WBC 10.8, RBC 4.55, Hgb 14.3, Hct 40.9, MCV 89.8, MCH 31.4 H, MCHC 34.9, RDW 13.3, Plt Count 287, MPV 9.8, Neut % (Auto) 76.6, Lymph % (Auto) 17.8, [place] % (Auto) 4.7, Eos % (Auto) 0.8, Baso % (Auto) 0.1, Neut # (Auto) 8.3 H, Lymph # (Auto) 1.9, [place] # (Auto) 0.5, Eos # (Auto) 0.1, Baso # (Auto) 0.0 12/08/19 20:10: Blood Type A Positive, Antibody Screen Negative I & O for Last 24 hours: Intake & Output 12/06/19 12/07/19 12/08/19 12/09/19 11:59 11:59 11:59 11:59 Weight 212 lb
--- NOTE | 2019-12-08 23:16 | Progress Note ---
Internal Medicine - PN: Subj *Date: 12/08/19 *Time: 23:14 (Cervix now completely effaced, completely dilated, 0 station.) Exam Vital signs and Labs for Last 24 Hours: Pulse Resp BP Pulse Ox 125 H 22 131/109 H 98 12/08/19 20:22 12/08/19 20:22 12/08/19 20:22 12/08/19 20:22 Laboratory Results - last 24 hr 12/08/19 20:07: Urine Color Yellow, Urine Appearance Clear, Urine pH 6.0, Ur Specific [place] 1.025, Urine Protein Negative, Urine Glucose (UA) Negative, Urine Ketones 1+, Urine Blood Trace-i, Urine Nitrate Negative, Urine Bilirubin Negative, Urine Urobilinogen 0.2, Ur Leukocyte Esterase Negative, Urine WBC 3-5, Ur Squamous Epith Cells 5-10, Urine Bacteria Trace 12/08/19 20:07: Urine Opiates Screen Negative, Urine Methadone Screen Negative, Ur Barbituates Screen Negative, Ur Phencyclidine Scrn Negative, Ur Amphetamines Screen Negative, U Benzodiazepines Scrn Negative, Urine Cocaine Screen Negative, U Marijuana (THC) Screen Negative 12/08/19 20:10: Magnesium 1.4 12/08/19 20:10: WBC 10.8, RBC 4.55, Hgb 14.3, Hct 40.9, MCV 89.8, MCH 31.4 H, MCHC 34.9, RDW 13.3, Plt Count 287, MPV 9.8, Neut % (Auto) 76.6, Lymph % (Auto) 17.8, [place] % (Auto) 4.7, Eos % (Auto) 0.8, Baso % (Auto) 0.1, Neut # (Auto) 8.3 H, Lymph # (Auto) 1.9, [place] # (Auto) 0.5, Eos # (Auto) 0.1, Baso # (Auto) 0.0 12/08/19 20:10: Blood Type A Positive, Antibody Screen Negative I & O for Last 24 hours: Intake & Output 12/06/19 12/07/19 12/08/19 12/09/19 11:59 11:59 11:59 11:59 Weight 212 lb
--- NOTE | 2019-12-08 23:45 | Procedure Note ---
- Delivery Note Delivery Date:: 01/13/18 Delivery Time:: 23:21 Anesthesia Type: Epidural Was labor medically induced?: No Induction method: none Gestational age (weeks): 35 delivered prior to 39 weeks?: Yes Justification for early elective delivery:: Active Labor Infant Gender: Male at 1 minute: 6 at 5 minutes: 8 Suction Catheter Type: [place] AF:: clear Delivery Procedure:: This 29-year-old 4, now para 4, Ab0 white female was admitted at 35-4/7 weeks in active labor at 4 to 5 cm of dilatation. She refused any attempt at tocolysis. She was a gestational diabetic on insulin and metformin; her recheck was 139 on admission. Her hemoglobin was 14.3 g. She stated that she has a history of hemorrhage with all of her previous deliveries. She labored under labor epidural, which worked well. She went steadily to completion, and delivered spontaneously, without an episiotomy, at 2321. There was a nuchal cord x1, which was easily reduced. There was no meconium. The ba by's nasal and oropharynx were bulb suctioned cord was clamped and cut. The baby was taken directly to the [facility], where it was attended by Dr. Merrill. The baby was an 6/8 male infant, who has done well, and will be bottle- fed. Cord blood was obtained (pH pending). The placenta did not deliver spontaneously. The cervix began to clamp down, necessitating a rather difficult manual removal, intact. The uterus was inspected and was felt to be clean, and was involuting well, with IV Pitocin running. There was no evidence of hemorrhage. The rectovaginal septum was intact at the close of the procedure (no lacerations). The patient tolerated the procedure well, and was recovered in excellent condition. Her blood type is A+. Her rubella titer is immune. She is planning a tubal sterilization procedure. Placental Delivery Description: Manual Removal (Cervix clamped down, requiring rather difficult manual removal. Uterus inspected and clean .)
[2019-12-09] LABS: Hematocrit 39.1 % (37.0-47.0); Hemoglobin 13.1 g/dL (12.2-16.2)
[2019-12-09 08:23] LABS: Hematocrit 36.7 % (37.0-47.0); Hemoglobin 12.8 g/dL (12.2-16.2)
--- NOTE | 2019-12-09 10:03 | Progress Note ---
Internal Medicine - PN: Subj *Date: 12/09/19 *Time: 10:01 Interval history: She is doing well this morning. She is eating and drinking and ambulating. Her lochia is normal. Her pain is well controlled. Exam Vital signs and Labs for Last 24 Hours: Pulse Resp BP Pulse Ox 125 H 22 131/109 H 98 12/08/19 20:22 12/08/19 20:22 12/08/19 20:22 12/08/19 20:22 Laboratory Results - last 24 hr 12/08/19 20:07: Urine Color Yellow, Urine Appearance Clear, Urine pH 6.0, Ur Specific [place] 1.025, Urine Protein Negative, Urine Glucose (UA) Negative, Urine Ketones 1+, Urine Blood Trace-i, Urine Nitrate Negative, Urine Bilirubin Negative, Urine Urobilinogen 0.2, Ur Leukocyte Esterase Negative, Urine WBC 3-5, Ur Squamous Epith Cells 5-10, Urine Bacteria Trace 12/08/19 20:07: Urine Opiates Screen Negative, Urine Methadone Screen Negative, Ur Barbituates Screen Negative, Ur Phencyclidine Scrn Negative, Ur Amphetamines Screen Negative, U Benzodiazepines Scrn Negative, Urine Cocaine Screen Negative, U Marijuana (THC) Screen Negative 12/08/19 20:10: Magnesium 1.4 12/08/19 20:10: WBC 10.8, RBC 4.55, Hgb 14.3, Hct 40.9, MCV 89.8, MCH 31.4 H, MCHC 34.9, RDW 13.3, Plt Count 287, MPV 9.8, Neut % (Auto) 76.6, Lymph % (Auto) 17.8, [place] % (Auto) 4.7, Eos % (Auto) 0.8, Baso % (Auto) 0.1, Neut # (Auto) 8.3 H, Lymph # (Auto) 1.9, [place] # (Auto) 0.5, Eos # (Auto) 0.1, Baso # (Auto) 0.0 12/08/19 20:10: Blood Type A Positive, Antibody Screen Negative 12/08/19 20:40: POC Glucose 179 H 12/08/19 23:27: POC Glucose 108 12/08/19 23:50: Hgb 13.1, Hct 39.1 12/09/19 08:08: Hgb 12.8, Hct 36.7 L I & O for Last 24 hours: Intake & Output 12/06/19 12/07/19 12/08/19 12/09/19 11:59 11:59 11:59 11:59 Output Total 200 / 200 Balance -200 / -200 Weight 212 lb - Constitutional no acute distress Assessment and Plan (1) Normal delivery Current visit: Yes Status: Acute Category: Medical Code(s): O80 - Encounter for full-term uncomplicated delivery (2) labor in third trimester Current visit: No Status: Acute Category: Medical Code(s): O60.03 - labor without delivery, third trimester (3) Gestational diabetes mellitus (GDM) affecting Current visit: No Status: Chronic Category: Medical Code(s): O24.419 - Gestational diabetes mellitus in , unspecified control - Assessment and plan all Dx Assessment and Plan for all problems:: She was doing well this morning. We will likely send her home in 48 hours since she delivered very late last night. She is also only 35 weeks . We will watch the baby for an extra day.
--- NOTE | 2019-12-10 09:23 | Progress Note ---
Internal Medicine - PN: Subj *Date: 12/10/19 *Time: 09:22 Interval history: She is doing very well. She is eating and drinking and ambulating. She is bottlefeeding. Her lochia is normal. Exam Vital signs and Labs for Last 24 Hours: Temp Pulse Resp BP Pulse Ox 97.9 F 100 H 18 112/62 97 12/10/19 04:05 12/10/19 04:05 12/10/19 04:05 12/10/19 04:05 12/10/19 04:05 Laboratory Results - last 24 hr 12/08/19 23:48: Cord ABG pH 7.36 I & O for Last 24 hours: Intake & Output 12/07/19 12/08/19 12/09/19 12/10/19 11:59 11:59 11:59 11:59 Output Total 200 / 200 Balance -200 / -200 Weight 212 lb - Constitutional no acute distress Assessment and Plan (1) Normal delivery Current visit: Yes Status: Acute Category: Medical Code(s): O80 - Encounter for full-term uncomplicated delivery (2) labor in third trimester Current visit: No Status: Acute Category: Medical Code(s): O60.03 - labor without delivery, third trimester (3) Gestational diabetes mellitus (GDM) affecting Current visit: No Status: Chronic Category: Medical Code(s): O24.419 - Gestational diabetes mellitus in , unspecified control - Assessment and plan all Dx Assessment and Plan for all problems:: She is doing well. We will plan to send her home tomorrow.
--- NOTE | 2019-12-10 09:27 | Discharge Summary ---
General - General Admission date:: 12/08/19 Discharge date: 12/11/19 HPI HPI: She is a 29-year-old 4 now para 4 who was 35 and 1 weeks gestational age. She came in in active labor. She has had episodes of labor throughout the . She did receive steroids earlier in the . She is a gestational diabetic on insulin as well as metformin. Hospital Course Hospital Course: On arrival she was found to be 4 cm dilated and refused any tocolytics. She progressed under labor epidural to full dilation and delivered spontaneously a liveborn male child at 11:21 PM in the evening of December 08, 2019. Baby was a liveborn male child weighing 6 pounds 0 ounces with Apgars of 6 at 1 minute and 8 at 5 minutes. She has done well and has remained afebrile throughout her hosp italization. She is eating and drinking and ambulating. She is bottlefeeding. Her vascular specialists is Dr. Merrill. She has a Rh+ blood, she is rubella immune and her GBS status was unknown. She is discharged home to follow-up with me in approximately 2 weeks time. She will continue with her vitamins and iron. She was given the usual activity with respect to limiting her activity, driving and sexual activity. Rhogam Administration: Not Indicated Objective Vital signs: Temp Pulse Resp BP Pulse Ox 97.9 F 100 H 18 112/62 97 12/10/19 04:05 12/10/19 04:05 12/10/19 04:05 12/10/19 04:05 12/10/19 04:05 no acute distress Results Labs on day of discharge: Labs from last 24 hours 12/08/19 23:48 Cord ABG pH 7.36 DS: Diagnosis - Discharge Diagnosis (1) Normal delivery Status: Acute (2) labor in third trimester Status: Acute (3) Gestational diabetes mellitus (GDM) affecting Status: Chronic Discharge Plan - Patient Discharge Instructions ACTIVITY: No heavy lifting DIET: continue same diet - Follow up Plan Disposition: Home, Self-Retirement Medications: Home Medications Medication Instructions Recorded Confirmed Type prenat.vits,vipul,[id number] 1 tab PO DAILY 05/28/19 12/08/19 History metformin 500 mg tablet 500 mg PO DIRECTED #60 tab 11/18/19 12/09/19 History acetaminophen 325 mg tablet 325 mg PO Q6H PRN 12/03/19 12/08/19 History insulin glargine 100 unit/mL (3 16 unit SQ HS ml 12/07/19 12/08/19 History mL) subcutaneous pen NIFEdipine [NIFEdipine 10mg 10 mg PO Q6HP PRN 12/08/19 12/08/19 History Capsule] Prescriptions/Medication Reconciliation: Continued prenat.vits,vipul,usw-irur-tvvdt 1 tab PO DAILY metformin 500 mg tablet 500 mg PO DIRECTED #60 tab acetaminophen 325 mg tablet 325 mg PO Q6H PRN PRN Reason: pain Discontinued insulin glargine 100 unit/mL (3 mL) subcutaneous pen 16 unit SQ HS ml NIFEdipine [NIFEdipine 10mg Capsule] 10 mg PO Q6HP PRN PRN Reason: Cramping - Problem Reconciliation Problems Reviewed?: Yes
[2019-12-11 09:50] VITALS: BP 121/67
== END 2019-12-11 09:25 | disposition home or self-care (01) | DRG 807 ==
LOC: OBOUT 19:51 → OB 19:56
PROVIDERS: ADMIT Obstetrics & Gynecology; ATTEND Nurse Practitioner Obstetrics & Gynecology
CPT/HCPCS: 36415; 59025; 80305; 81001; 82800; 82962; 83735; 85014; 85018; 85025; 86850; C1758; J0290

== ENCOUNTER → 2021-03-28 15:13 | Outpatient (CLI) | payer BC, MEDICAID, SELFPAY ==
--- NOTE | 2021-03-28 15:13 | US_ITS ---
PROCEDURE: US TRANSVAGINAL CLINICAL INDICATION: pelvic pain, endometriosis COMPARISON: US OBTV US OB transvaginal from 06/01/2019 FINDINGS: UTERUS: 10cm x 7cmx 6cm with a combined endometrial thickness of 12 mm LEFT OVARY: [id number] with a volume of 65.1ml. RIGHT OVARY: [id number] with a volume of 6.6ml. There is a 4 cm simple appearing left ovarian cyst. No cul-de-sac fluid. Bilateral ovarian blood flow noted IMPRESSION: Bulky uterus with endometrial stripe upper limits of normal with 4 cm simple appearing ovarian cyst on the left Dictated by: Gregory Jacob MD 03/28/2021 17:19 Gregory Jacob MD in OV 03/28/2021 17:19
== END ==
PROVIDERS: PCP Nurse Practitioner Obstetrics & Gynecology; Visit Provider Nurse Practitioner Obstetrics & Gynecology
DX: R10.2 Pelvic and perineal pain (principal); N80.9 Endometriosis, unspecified
CPT/HCPCS: 76830

== ENCOUNTER → 2021-04-04 09:12 | Outpatient (CLI) | payer BC, MEDICAID, SELFPAY ==
[2021-04-04 10:05] LABS: Basophils % 0.6 % (0.1-2.0); Eosinophils # 0.2 K/mm3 (0.0-0.4); Eosinophils % 2.8 % (0.1-12.0); Hematocrit 40.3 % (37.0-47.0); Hemoglobin 13.8 g/dL (12.2-16.2); Lymphocytes # 1.8 K/mm3 (0.7-4.5); Lymphocytes % 29.8 % (10-50); Mean Corpuscular HGB Conc 34.2 g/dL (31.8-35.4); Mean Corpuscular Hemoglobin 30.7 pg (27.0-31.2); Mean Corpuscular Volume 89.9 fl (81-99); Mean Platelet Volume 8.2 fl (7.4-10.4); Monocytes # 0.3 K/mm3 (0.1-1.0); Monocytes % 4.1 % (1.7-9.3); Neutrophils # 3.8 K/mm3 (1.8-7.8); Neutrophils % 62.8 % (37.0-80.0); Platelet Count 221 K/mm3 (142-424); Red Blood Count 4.48 M/mm3 (4.20-5.40); Red Cell Distribution Width 12.6 % (11.5-17.5)
[2021-04-04 10:44] LABS: Alanine Aminotransferase 315 U/L (12-78); Albumin Level 4.4 g/dl (3.5-5.0); Albumin/Globulin Ratio 1.4 (1.1-1.8); Alkaline Phosphatase 83 U/L (38-126); Anion Gap 10.3 mEq/L (5-15); Aspartate Amino Transferase 213 U/L (14-36); Bilirubin,Total 1.5 mg/dl (0.2-1.3); Blood Urea Nitrogen 6 mg/dl (7-17); Calcium 9.5 mg/dl (8.4-10.2); Carbon Dioxide 27 mmol/L (22.0-30.0); Chloride 105 mmol/L (98-107); Estimated Glomerular Filt Rate 117 ml/min (>60); GFR (African American) 142 ML/MIN (>60); Globulin 3.1 g/dL (1.3-3.2); Glucose 158 mg/dl (74-100); Potassium 3.3 mmoL/L (3.5-5.1); Sodium 139 mmol/L (136-145); Total Protein,Serum 7.5 g/dl (6.3-8.2)
[2021-04-04 11:09] LABS: HCG Qualitative, Serum Negative (Negative)
[2021-04-04 11:28] LABS: Free Thyroxine Index 2.9 ug/dL (5.93-13.13); T4 (Thyroxine) 10.8 ug/dl (5.53-11.0); Triiodothryronine (T3) Uptake 27 % (23.5-40.5)
[2021-04-04 11:42] LABS: Thyroid Stimulating Hormone 1.91 uIU/mL (0.465-4.68)
== END ==
PROVIDERS: Visit Provider Nurse Practitioner Obstetrics & Gynecology
DX: Z01.818 Encounter for other preprocedural examination (principal); Z11.52 Encounter for screening for COVID-19; N92.0 Excessive and frequent menstruation with regular cycle; N94.6 Dysmenorrhea, unspecified; R10.2 Pelvic and perineal pain; Z87.42 Personal history of other diseases of the female genital tract; N94.10 Unspecified dyspareunia
CPT/HCPCS: 80053; 84436; 84443; 84479; 84703; 85025; U0003

== ENCOUNTER 2021-04-05 10:57 | Observation (INO) | payer BC, MEDICAID, SELFPAY ==
[2021-04-03 11:40] VITALS: BMI 45.8
[2021-04-05] VITALS (24 sets, daily range): BP systolic 93–129; BP diastolic 51–87; PULSE 70–113; RESP 14–20; TEMP 36.1–43; O2SAT 92–100
--- NOTE | 2021-04-05 07:54 | P.PN_ITS ---
[facility] Anesthesia Checklist - Patient Identification Patient Identification: Arm Band - Structural Data Admitted From: Home Planned Operative Procedure/s: LAVH with Bilateral Salpingectomy Consent for Planned Operative Procedure(s) Verified: Yes Verified Documents: Surgical Consent, History and Physical - NPO Status Verified Time NPO: 00:00 - Additional verifications Anesthesia Reactions: Yes (vomiting) Hx Blood Transfusions: No Blood Transfusion Reaction: No - Airway Assessment C-Spine Mobility Assessed: Yes (mp2) TMJ Mobility Assessed: Yes Dentition: Good Dentition - Neurological Assessment Level of Consciousness: Awake, Alert - Anesthesia Plan Anesthesia Risk discussed: Yes Anesthesia Plan: Verified ASA Class: III Anesthesia Type: General [facility] History I have reviewed the patient's past medical history: Yes Medical History: Reports:: Kidney Stones Denies:: Cancer, Diabetes Mellitus Type 1, Diabetes Mellitus Type 2, Internal Pacemaker, MRSA, Seizures *Have you ever received a pneumonia vaccine?: No *Have you received a flu vaccine this season?: Yes Other Medical History: Reports: Arthritis, Glaucoma, Liver Disease, Other. Denies: Blood Transfusion Reaction Anesthesia experience/problems:: nac Other Surgeries: Yes: Other. 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
--- NOTE | 2021-04-05 09:47 | P.PN_ITS ---
[facility] Anesthesia Record Part I Intake, IV Amount: 1,900 Estimated blood loss (mL): 1,400 Urine output (mL): 75 Blood Pressure: 121/87 SaO2: 92 Pulse Rate: 88 Respiratory Rate: 16 Temperature: 99.2 F Patient is:: Drowsy, Stable Stable to PACU at:: 09:40
--- NOTE | 2021-04-05 09:53 | HMH.OPNOTE ---
Date of procedure: 04/05/21 Pre-op Diagnosis:: Menorrhagia, pelvic pain, uterine hypertrophy Post-op Diagnosis:: Menorrhagia, pelvic pain, uterine hypertrophy Procedure performed:: Laparoscopically assisted vaginal hysterectomy, bilateral salpingectomy Surgeon:: Terence Cota MD Business Improvement Manager(s):: Silvia Thompson Anesthesia: GETA Estimated blood loss (mL): 1,400 Clinical Note:: She is a 30-year-old lady who complains of extremely heavy periods. Ultrasound confirmed that she had a bulky uterus. She also complains of pelvic pain and dyspareunia. She has a history of endometriosis. Operative findings:: She had an anteverted bulky uterus. The ovaries and tubes appeared normal. The uterus was quite boggy consistent with adenomyosis and there were extremely large blood vessels feeding the uterus. Rest the pelvis appeared normal. Upper abdomen appeared normal. Operative note:: She was taken to the operating room where general anesthesia was found be adequate. She was prepped and draped in normal sterile fashion in the semilithotomy position. A weighted speculum was placed in the vagina and the anterior lip of the cervix was grasped with a tenaculum. An acorn uterine manipulator was then placed within the cervical os. I then changed gloves. I injected 10 cc of 0.5% ropivacaine around the umbilicus and made a small incision within the umbilicus. I inserted a Veress needle into the abdominal cavity. The abdominal cavity was then insufflated with carbon dioxide gas to a pressure of 20 mmHg. I then inserted an 11 mm trocar under direct vision. I injected through and through the pubic hairline, made a small incision here and inserted a 5 mm trocar under direct vision. I identified the inferior epigastric arteries on the left side, went lateral to these and injected through and through. I then made a small incision and inserted an 11 mm trocar under direct vision. A similar 11 mm trocar was placed on the right side. The left round ligament was then grasped and cut through with harmonic scalpel. This was followed by opening up the peritoneum anteriorly to the midline. I then grasped the tube on the left side and cut through this. This is followed by cutting through the left utero-ovarian ligament. I used Harmonic scalpel on the coagulation mode. I then took down the posterior aspect of the broad ligament to the level of the uterosacral ligament. I then skeletonized the uterine arteries on the left side and placed hemoclips on these. The arteries were unusually large. Using the harmonic scalpel on coagulation mode adjacent to the cervix I then took down these uterine arteries. I then further freed up the bladder anteriorly and laterally on the left side. I then turned my attention to the right side where I grasped the right round ligament. The right tube was adherent to the right pelvic sidewall and using harmonic scalpel I was able to free this up. I then cut through the right round ligament. I then took down the anterior peritoneum to the midline joining up with the other side. I further dissected the bladder off. The posterior aspect of the right broad ligament was then taken down with harmonic scalpel. I skeletonized the uterine arteries on the right side. I applied hemoclips to the uterine arteries and staying adjacent to the cervix on the right side I took down the uterine arteries with harmonic scalpel on coagulation mode. She had a blood vessel on the side that bled profusely and it took me a few minutes to find this blood vessel. She lost at least 1000 cc fairly quickly while I was trying to obtain hemostasis. I was able to put a Hemoclip on it. I further freed up the bladder. We then assured hemostasis. I then grasped the distal end of the right tube and using harmonic scalpel I cut along the mesosalpinx. The tube was removed through the 11 mm trocar site. This was only performed on the patient's left side. After once
[2021-04-05 10:05] LABS: Hemoglobin 11.5 g/dL (12.2-16.2)
--- NOTE | 2021-04-05 10:08 | HMH.HP ---
*Admission Date: 04/05/21 *Chief complaint: Menorrhagia, uterine hypertrophy, pelvic pain, dyspareunia *History of present illness: She is a 30-year-old lady who complains of very heavy periods. She also has pain with intercourse and pain with her periods. She has a history of endometriosis. Ultrasound showed an enlarged uterus. [facility] History I have reviewed the patient's past medical history: Yes Medical History: Reports:: Kidney Stones Denies:: Cancer, Diabetes Mellitus Type 1, Diabetes Mellitus Type 2, Internal Pacemaker, MRSA, Seizures *Have you ever received a pneumonia vaccine?: No *Have you received a flu vaccine this season?: Yes Other Medical History: Reports: Arthritis, Glaucoma, Liver Disease, Other. Denies: Blood Transfusion Reaction Anesthesia experience/problems:: nac Other Surgeries: Yes: Dilation and Curettage, Other. 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, Endometriosis Review of Systems - Review of Systems Review of systems:: pertinent systems reviewed and negative unless documented below Meds Home Medications Medication Instructions Recorded Confirmed Type fluoxetine 10 mg capsule 10 mg PO DAILY cap 03/23/21 04/05/21 History latanoprost 0.005 % eye drops 1 drp OPHTHALMIC DAILY ml 03/23/21 04/05/21 History Allergies Allergy/AdvReac Type Severity Reaction Status Date / Time No Known Allergies Allergy Verified 04/05/21 06:18 Exam Vital signs and Labs for Last 24 Hours: Temp Pulse Resp BP Pulse Ox 99.2 F 83 14 110/62 96 04/05/21 10:00 04/05/21 10:00 04/05/21 10:00 04/05/21 10:00 04/05/21 10:00 I & O for Last 24 hours: Intake & Output 04/02/21 04/03/21 04/04/21 04/05/21 11:59 11:59 11:59 11:59 Intake Total 1900 / 1900 Output Total 75 / 75 Balance 1825 / 1825 Weight 235 lb - Constitutional no acute distress - *Routine HEENT Exam Head: Present: normocephalic Eye: Present: EOMI, PERRL ENT: Present: mucous membranes moist - *Routine Neck Exam Present: supple, full ROM - *Routine Respiratory Exam Absent: accessory muscle use (good air entry bilaterally), wheezes, crackles - *Routine Cardiovascular Exam Present: RRR. Absent: murmur - *Routine Abdominal Exam Present: soft, normoactive bowel sounds. Absent: tenderness, rebound, guarding, mass - *Routine Rectal Exam Rectal:: deferred - *Routine Genitalia Exam Genitalia:: deferred - *Routine Extremities Exam Present: full ROM. Absent: cyanosis, edema, calf tenderness - *Routine Skin Exam Present: intact (good color) - *Routine Neurological Exam Present: alert, oriented X3 - Routine Psychiatric Exam Present: normal affect - Detailed Rectal Exam Patient deferred: visual exam, digital exam - Detailed Exam Patient deferred: external exam, groin exam, perineal exam Assessment and Plan (1) Uterine hypertrophy Status: Acute Category: Medical Code(s): N85.2 - Hypertrophy of uterus (2) Menorrhagia Status: Acute Category: Medical Code(s): N92.0 - Excessive and frequent menstruation with regular cycle (3) Dysmenorrhea Status: Acute Category: Medical Code(s): N94.6 - Dysmenorrhea, unspecified (4) Dyspareunia Status: Acute Category: Medical (5) History of endometriosis Status: Acute Category: Medical Code(s): Z87.42 - Personal history of other diseases of the female genital tract - Assess
--- NOTE | 2021-04-05 11:10 | P.PN_ITS ---
[facility] Anesthesia Record Part II Discharge Time: 10:20 Destination: Obstetric PACU nurse assessment reviewed?: Yes Patient Condition:: Good Anesthesia Complications:: None Swallowing reflex intact?: Yes Cyanosis?: No Blood Pressure: 102/65 Pulse Rate: 74 Temperature: 98.2 F Mental Status: Alert & Oriented Pain level:: 0 Nausea and/or vomitting:: None Intake, IV Amount: 0
--- NOTE | 2021-04-05 12:46 | HMH.PHAVTE ---
[facility] Pharmacy VTE Monitoring - Patient Demographics Admission date: 04/05/21 Report Date: 04/05/21 Time: 12:46 Allergies/Adverse Reactions: Patient Allergies No Known Allergies Allergy (Verified 04/05/21 06:18) Height: 1.52 m Weight: 106.594 kg Patient Problems: Current Active Problems Uterine hypertrophy (Acute) Menorrhagia (Acute) Dysmenorrhea (Acute) Dyspareunia (Acute) History of endometriosis (Acute) - VTE Risk Labs: VTE Related Lab Results Hgb 11.5 g/dL (12.2-16.2) L 04/05/21 09:58 Hct 34.0 % (37.0-47.0) L 04/05/21 09:58 Was VTE Risk Assessment Performed: Yes VTE Score: 2 VTE Risk Level: Very Low Risk - Prophylaxis VTE Prophylaxis Ordered?: Yes Types of VTE Prophylaxis: TEDS Thigh High, IPCS Thigh High Location of Applied Device: Bilateral Lower Extremeties Pharmacologic Type: Enoxaparin
--- NOTE | 2021-04-05 12:48 | HMH.PHAINT ---
MEDICATION RECONCILIATION COMPLETED ON PATIENT USING EXTERNAL FILL HISTORY FROM PHARMACY. -JUNO BENSON, NELDAD
[2021-04-05 13:24] LABS: Hematocrit 33.7 % (37.0-47.0); Hemoglobin 11.3 g/dL (12.2-16.2)
[2021-04-05 14:39] LABS: Microscopic,Cath URINE MICROSCOPIC (MICROSCOPIC)
[2021-04-05 14:48] LABS: Appearance,Urine/Cath CLEAR (Clear); Bilirubin,Cath Negative (Negative); Blood, Urine/Cath TRACE-I (Negative); Color,Urine/Cath YELLOW (Yellow); Glucose,Urine/Cath (UA) Negative (Negative); Ketones,Urine/Cath TRACE (Negative); Leukocyte Esterase,Cath Negative (Negative); Nitrate,Cath Negative (Negative); PH,Urine/Cath 5.5 (5.0-8.5); Protein,Urine/Cath TRACE (Negative); Specific Gravity, Urine/Cath >= 1.030 (1.005-1.030); Urobilinogen,Cath 0.2 EU/dl (0.2)
[2021-04-05 14:57] LABS: Bacteria,Urine/Cath 2+ /lpf
[2021-04-05 14:58] LABS: Mucus,Urine/Cath 1+ /lpf
--- NOTE | 2021-04-05 15:30 | PC.NURSE ---
report received from cecilia zee rn
--- NOTE | 2021-04-05 15:42 | PC.NURSE ---
Report given to lEiot PADILLA
--- NOTE | 2021-04-05 16:30 | PC.NURSE ---
Pt awoken for reassessment. A/ox4. Lungs cta and bowel sounds hypoactive. pt reports not passing gas yet. reports cramping like pain rates 5/10. Small amount of dark red bleeding noted on peripad. Denies numbness/tingling. Iv infusing without difficulty and messer cath in place draining dark yellow urine. Denies dizziness at this time. pt is pale in appearance. 4 lap sites noted. scant serosang drainage on site to right dressing. no distress was noted. call light within reach.
--- NOTE | 2021-04-05 16:42 | PC.NURSE ---
lab at bedside now
[2021-04-05 17:22] LABS: Hematocrit 25.9 % (37.0-47.0)
[2021-04-05 17:24] LABS: Hemoglobin 8.9 g/dL (12.2-16.2)
--- NOTE | 2021-04-05 17:30 | PC.NURSE ---
DR. BOLES NOTIFIED OF PATIENTS H/H MD REPORTED TO REPEAT IN AM. R/V
--- NOTE | 2021-04-05 18:55 | PC.NURSE ---
PT PINEDA D/C AT THIS TIME. PT TOLERATED WELL. GOT PATIENT UP TO BR MESH PANTIES AND PAD APPLIED. TOLERATED AMBULATION WELL. WANTS TO SHOWER TONIGHT. BED LINENS STRAIGHTENED
--- NOTE | 2021-04-05 19:16 | PC.NURSE ---
REPORT GIVEN TO Joey BARCENAS RN
--- NOTE | 2021-04-05 22:29 | PC.NURSE ---
Pt helped to the shower, bed linens changed and trash taken out. Incisions cleaned
[2021-04-06 04:00] VITALS: BP 104/51; PULSE 88; RESP 18; TEMP 36.7; O2SAT 98
--- NOTE | 2021-04-06 04:26 | PC.NURSE ---
Pt has rested comfortably in bed during this shift, A&Ox4, BLT lungs CTA, bowel sounds present in all 4 quadrants. IV saline locked. ICPs thigh high in place, Pt medicated per MAR for pain, pt up to the bathroom without assistance, Pt denies SOA, n/v, or headache, pt incisions CDI steri strips in place
--- NOTE | 2021-04-06 07:09 | PC.NURSE ---
report given to Carrie Abad RN
[2021-04-06 08:02] VITALS: BP 116/67; PULSE 74; RESP 18; TEMP 36.9; O2SAT 100
[2021-04-06 08:08] LABS: Blood Urea Nitrogen 5 mg/dl (7-17); Calcium 8.6 mg/dl (8.4-10.2); Carbon Dioxide 28 mmol/L (22.0-30.0); Chloride 109 mmol/L (98-107); Creatinine Clearance Estimated 98 mL/min (50-200); Estimated Glomerular Filt Rate 117 ml/min (>60); GFR (African American) 142 ML/MIN (>60); Glucose 109 mg/dl (74-100); Sodium 138 mmol/L (136-145)
[2021-04-06 08:16] VITALS: O2SAT 100
[2021-04-06 08:18] LABS: MANUAL DIFFERENTIAL MANUAL DIFFERENTIAL (MANUAL DIFF)
[2021-04-06 08:27] LABS: Basophils % 0.2 % (0.1-2.0); Eosinophils # 0.1 K/mm3 (0.0-0.4); Eosinophils % 0.5 % (0.1-12.0); Hemoglobin 9.7 g/dL (12.2-16.2); Lymphocytes # 2.2 K/mm3 (0.7-4.5); Lymphocytes % 22.8 % (10-50); Mean Corpuscular HGB Conc 34.7 g/dL (31.8-35.4); Mean Corpuscular Hemoglobin 31.2 pg (27.0-31.2); Mean Platelet Volume 8.4 fl (7.4-10.4); Monocytes # 0.4 K/mm3 (0.1-1.0); Monocytes % 4.4 % (1.7-9.3); Neutrophils # 6.9 K/mm3 (1.8-7.8); Neutrophils % 72.1 % (37.0-80.0); Platelet Count 198 K/mm3 (142-424); Red Cell Distribution Width 12.7 % (11.5-17.5); White Blood Count 9.6 K/mm3 (4.8-10.8)
[2021-04-06 08:41] LABS: Red Blood Count 3.11 M/mm3 (4.20-5.40)
--- NOTE | 2021-04-06 08:43 | HMH.DCSUM ---
General - General Admission date:: 04/05/21 Discharge date: 04/06/21 HPI HPI: She is a 30-year-old lady who complains of very heavy periods. She also has pain with intercourse and pain with her periods. She has a history of endometriosis. Ultrasound showed an enlarged uterus. Hospital Course Hospital Course: On April 05, 2021 she underwent a laparoscopic-assisted vaginal hysterectomy. She had some significant bleeding during the surgery as result of an open blood vessel on the right-hand side but this was cauterized and clipped. Since then she has done well. Overnight she has had normal vital signs. Her hemoglobin this morning is 9.7. She is eating and drinking and ambulating. She denies any chest pain, shortness of breath or calf tenderness. Her incisions are clean and dry. She will be discharged home this morning to follow-up with me in approximately 2 weeks time. I have suggested she starts a women's One-A-Day vitamin with iron. She was given a prescription for oxycodone 5 mg tablets and she will take ibuprofen as well. She has fatty liver disease so I have instructed her not to take any Tylenol. I have encouraged her to follow-up with a liver specialist as well. She has not seen them in over a year. Her liver function tests are continuing to be elevated with her fatty liver disease. She was given the usual instructions with respect to limiting her activity, driving and sexual activity. She was given instructions with respect to wound care. Her condition on discharge is stable and improved. Objective Vital signs: Temp Pulse Resp BP Pulse Ox 98.5 F 74 18 116/67 100 04/06/21 08:02 04/06/21 08:02 04/06/21 08:02 04/06/21 08:02 04/06/21 08:16 no acute distress - *Routine HEENT Exam Head: Present: normocephalic Eye: Present: EOMI, PERRL ENT: Present: mucous membranes moist - *Routine Neck Exam Present: supple - *Routine Respiratory Exam Present: CTA bilaterally - *Routine Cardiovascular Exam Present: RRR - *Routine Abdominal Exam Present: soft, normoactive bowel sounds. Absent: tenderness Comments: Her incisions are clean and dry. Results Labs on day of discharge: Labs from last 24 hours 04/06/21 04/06/21 04/05/21 07:05 07:05 16:44 WBC 9.6 D RBC 3.11 L D Hgb 9.7 L 8.9 L D Hct 28.0 L 25.9 L MCV 90.0 MCH 31.2 MCHC 34.7 RDW 12.7 Plt Count 198 MPV 8.4 Neut % (Auto) 72.1 Lymph % (Auto) 22.8 Ste[place]s % (Auto) 4.4 Eos % (Auto) 0.5 Baso % (Auto) 0.2 Neut # (Auto) 6.9 Lymph # (Auto) 2.2 Stearns # (Auto) 0.4 Eos # (Auto) 0.1 Baso # (Auto) 0.0 Sodium 138 Potassium 4.0 D Chloride 109 H Carbon Dioxide 28 Anion Gap 5.0 BUN 5 L Creatinine 0.60 Estimated Creat Clear 98 Estimated GFR 117 Est GFR ( Amer) 142 Glucose 109 H Calcium 8.6 Urine Color Urine Appearance Urine pH Ur Specific [place] Urine Protein Urine Glucose (UA) Urine Ketones Urine Blood Urine Nitrate Urine Bilirubin Urine Urobilinogen Ur Leukocyte Esterase Urine RBC Urine WBC Ur Squamous Epith Cells Urine Bacteria Blood Type Antibody Screen Crossmatch (AHG) 04/05/21 04/05/21 04/05/21 13:06 10:20 09:58 WBC RBC Hgb 11.3 L 11.5 L Hct 33.7 L 34.0 L MCV MCH MCHC RDW Plt Count MPV Neut % (Auto) Lymph % (Auto) [place] % (Auto) Eos % (Auto) Baso % (Auto) Neut # (Auto) Lymph # (Auto) [place] # (Auto) Eos # (Auto) Baso # (Auto) Sodium Potassium Chloride Carbon Dioxide Anion Gap BUN Creatinine Estimated Creat Clear Estimated GFR Est GFR ( Amer) Glucose Calcium Urine Color Urine Appearance Urine pH Ur Specific [place] Urine Protein Urine Glucose (UA) Urine Ketones Urine Blood Urine Nitrate
[2021-04-06 11:03] LABS: Eosinophils % 1 % (0-3); Lymphocytes % 29 % (10-50); Monocytes % 5 % (2-9); Neutrophils % 65 % (42-76); Platelet Estimate Normal; RBC Morphology Normal; Total Cells Counted 100
== END 2021-04-06 12:40 | disposition home or self-care (01) ==
LOC: OB 10:58
PROVIDERS: Nurse Anesthetist, Certified Registered; Admitting Provider Nurse Practitioner Obstetrics & Gynecology; PCP Nurse Practitioner Obstetrics & Gynecology; Visit Provider Nurse Practitioner Obstetrics & Gynecology
PROC: 0UT9FZZ Resection of Uterus, Via Natural or Artificial Opening With Percutaneous Endoscopic Assistance (ICD-10-PCS; CPT 58552; principal; 2021-04-05 07:30)
DX: N85.2 Hypertrophy of uterus (principal); N92.0 Excessive and frequent menstruation with regular cycle; N94.10 Unspecified dyspareunia
CPT/HCPCS: 58552; 36415; 80048; 81001; 85007; 85014; 85018; 85048; 85049; 86850; 87086; 94761; 96374; 96375; G0283; G0378; J2405; J2710

== ENCOUNTER → 2021-05-19 09:08 | Outpatient (CLI) | payer BC, MEDICAID, SELFPAY | PROVIDERS: PCP Nurse Practitioner; Visit Provider Nurse Practitioner Family | DX: R06.81 Apnea, not elsewhere classified (principal); R53.83 Other fatigue; R06.83 Snoring; E66.01 Morbid (severe) obesity due to excess calories; Z68.41 Body mass index [BMI] 40.0-44.9, adult | CPT/HCPCS: G0399 ==

== ENCOUNTER → 2021-06-26 13:40 | Outpatient (CLI) | payer BC, MEDICAID, SELFPAY | PROVIDERS: Visit Provider Nurse Practitioner Family | DX: Z20.822 Contact with and (suspected) exposure to COVID-19 (principal) | CPT/HCPCS: U0003 ==

== ENCOUNTER → 2021-06-28 20:15 | Outpatient (CLI) | payer BC, MEDICAID, SELFPAY | PROVIDERS: PCP Nurse Practitioner; Visit Provider Nurse Practitioner Family | DX: G47.30 Sleep apnea, unspecified (principal); R06.83 Snoring; E66.9 Obesity, unspecified; Z68.41 Body mass index [BMI] 40.0-44.9, adult | CPT/HCPCS: 95810 ==

== ENCOUNTER → 2021-07-17 14:29 | Outpatient (CLI) | payer BC, MEDICAID, SELFPAY ==
[2021-07-17 15:49] LABS: Basophils % 0.7 % (0.1-2.0); Eosinophils # 0.2 K/mm3 (0.0-0.4); Eosinophils % 3.1 % (0.1-12.0); Hematocrit 43.5 % (37.0-47.0); Hemoglobin 14.8 g/dL (12.2-16.2); Lymphocytes # 2.2 K/mm3 (0.7-4.5); Lymphocytes % 37.3 % (10-50); Mean Corpuscular HGB Conc 33.9 g/dL (31.8-35.4); Mean Corpuscular Volume 88.4 fl (81-99); Mean Platelet Volume 11.5 fl (7.4-10.4); Monocytes # 0.3 K/mm3 (0.1-1.0); Monocytes % 5.2 % (1.7-9.3); Neutrophils # 3.2 K/mm3 (1.8-7.8); Neutrophils % 53.6 % (37.0-80.0); Platelet Count 258 K/mm3 (142-424); Red Blood Count 4.92 M/mm3 (4.20-5.40); Red Cell Distribution Width 13.4 % (11.5-17.5)
[2021-07-17 16:03] LABS: Microalbumin/Creatinine Ratio 11.7
[2021-07-17 16:06] LABS: 25-OH Vitamin D, Total 18.5 ng/mL (30-100)
[2021-07-17 16:07] LABS: Creatinine,Urine Random 88 mg/dL (Not Estab.)
[2021-07-17 17:59] LABS: Alanine Aminotransferase 200 U/L (12-78); Albumin Level 4.3 g/dl (3.5-5.0); Albumin/Globulin Ratio 1.6 (1.1-1.8); Alkaline Phosphatase 82 U/L (38-126); Anion Gap 12.1 mEq/L (5-15); Aspartate Amino Transferase 138 U/L (14-36); Bilirubin,Total 1.1 mg/dl (0.2-1.3); Blood Urea Nitrogen 10 mg/dl (7-17); Calcium 9.1 mg/dl (8.4-10.2); Carbon Dioxide 28 mmol/L (22.0-30.0); Chloride 105 mmol/L (98-107); Chol/HDL Ratio 4.7 (1-3.5); Cholesterol 221 mg/dl (140-200); Estimated Glomerular Filt Rate 144 ml/min (>60); GFR (African American) 174 ML/MIN (>60); Globulin 2.7 g/dL (1.3-3.2); Glucose 98 mg/dl (74-100); HDL Cholesterol 47 mg/dl (40-60); Potassium 4.1 mmoL/L (3.5-5.1); Sodium 141 mmol/L (136-145); Triglycerides 119 mg/dl (30-150); VLDL Cholesterol 24 mg/dL (0-40)
[2021-07-17 18:10] LABS: Direct LDL Cholesterol 148.84 mg/dL (100-129)
[2021-07-17 18:16] LABS: T4 (Thyroxine) 11.1 ug/dl (5.53-11.0)
[2021-07-17 18:26] LABS: Hemoglobin A1C 5.4 % (4.0-6.0)
[2021-07-17 18:30] LABS: Thyroid Stimulating Hormone 1.27 uIU/mL (0.465-4.68)
== END ==
PROVIDERS: Visit Provider Emergency Medicine
DX: E11.9 Type 2 diabetes mellitus without complications (principal); E66.9 Obesity, unspecified; E55.9 Vitamin D deficiency, unspecified; Z79.84 Long term (current) use of oral hypoglycemic drugs; Z68.41 Body mass index [BMI] 40.0-44.9, adult
CPT/HCPCS: 80053; 80061; 82043; 82306; 82570; 83036; 84436; 84443; 85025